=== PATIENT | male | born 1985 | race Caucasian/White ===

== ENCOUNTER 2016-08-15 21:20 | Emergency (ER) | payer OTHER ==
[2016-08-15 22:01] LABS: HEMOGLOBIN 14.4 gm/dl (14.0-17.5); RED BLOOD COUNT 4.94 M/UL (4.20-5.50); WHITE BLOOD COUNT 14.2 K/UL (4.5-11.0)
[2016-08-15 22:21] LABS: BUN/CREATININE RATIO 15 (0-10)
== END 2016-08-16 00:30 | disposition home or self-care (01) ==
LOC: ER1 21:20
PROVIDERS: Specialist/Technologist Athletic Trainer
DX: N13.2 Hydronephrosis with renal and ureteral calculous obstruction (principal); R73.9 Hyperglycemia, unspecified; E87.6 Hypokalemia; E86.0 Dehydration; Z87.891 Personal history of nicotine dependence
CPT/HCPCS: 36415; 80053; 81001; 85025; 87086; 99285; J1885; J2550; J7050

== ENCOUNTER 2016-08-16 11:19 | Emergency (ER) | payer OTHER ==
[2016-08-16 15:33] LABS: HEMOGLOBIN 14.5 gm/dl (14.0-17.5); RED BLOOD COUNT 5.08 M/UL (4.20-5.50); WHITE BLOOD COUNT 15.2 K/UL (4.5-11.0)
[2016-08-16 16:01] LABS: BUN/CREATININE RATIO 15 (0-10)
== END 2016-08-16 19:20 | disposition home or self-care (01) ==
LOC: ER1 11:19
PROVIDERS: Student in an Organized Health Care Education/Training Program
DX: N20.1 Calculus of ureter (principal); D72.829 Elevated white blood cell count, unspecified; Z87.891 Personal history of nicotine dependence
CPT/HCPCS: 36415; 74000; 80053; 81001; 85025; 87086; 96361; 96365; 96375; 99284; J0696; J1885; J2405; J7050

== ENCOUNTER 2020-10-12 14:23 | Emergency (ER) | payer OTHER ==
[2020-10-12 14:48] LABS: HEMOGLOBIN 14.9 gm/dl (14.0-17.5); RED BLOOD COUNT 5.25 M/UL (4.20-5.50); WHITE BLOOD COUNT 12.6 K/UL (4.5-11.0)
[2020-10-12 15:27] LABS: BUN/CREATININE RATIO 20 (0-10)
[2020-10-12] MEDS ORDERED: NORFLEX 100 MG100 MG PO (17:06)
[2020-10-12] MEDS ORDERED: IBUPROFEN600 MG PO (17:06)
== END 2020-10-12 17:15 | disposition home or self-care (01) ==
LOC: ER1 14:23
PROVIDERS: Emergency Medicine
DX: E86.0 Dehydration (principal); F17.210 Nicotine dependence, cigarettes, uncomplicated
CPT/HCPCS: 80053; 81001; 82550; 82553; 83874; 84484; 85025; 99283

== ENCOUNTER 2020-12-07 15:13 | Emergency (ER) | payer OTHER ==
[~2020-12-07 15:13] MED LIST: IBUPROFEN600 MG PO; NORFLEX 100 MG100 MG PO
[2020-12-07 16:41] LABS: HEMOGLOBIN 16.4 gm/dl (14.0-17.5); RED BLOOD COUNT 5.46 M/UL (4.20-5.50); WHITE BLOOD COUNT 13.7 K/UL (4.5-11.0)
[2020-12-07 16:57] LABS: BUN/CREATININE RATIO 21 (0-10)
[2020-12-07] MEDS ORDERED: ONDANSETRON ODT4 MG SL (18:00)
== END 2020-12-07 18:24 | disposition home or self-care (01) ==
LOC: ER1 15:13
PROVIDERS: Physician Assistant
DX: E86.0 Dehydration (principal); R10.84 Generalized abdominal pain; R11.2 Nausea with vomiting, unspecified; Z20.822 Contact with and (suspected) exposure to COVID-19; F17.200 Nicotine dependence, unspecified, uncomplicated
CPT/HCPCS: 0240U; 80053; 81001; 83690; 85025; 96374; 99284; J2405; J7030